=== PATIENT | female | born 1975 | race Caucasian/White ===

== ENCOUNTER 2016-08-15 09:02 | Emergency (ER) | payer MEDICARE | END 2016-08-15 09:26 | disposition home or self-care (01) | LOC: ER 09:02 | DX: H66.91 Otitis media, unspecified, right ear (principal); F17.210 Nicotine dependence, cigarettes, uncomplicated; Z90.49 Acquired absence of other specified parts of digestive tract; Z88.5 Allergy status to narcotic agent ==

== ENCOUNTER 2016-10-18 20:00 | Emergency (ER) | payer MEDICARE | END 2016-10-18 21:15 | disposition home or self-care (01) | LOC: ER 20:00 | DX: M19.031 Primary osteoarthritis, right wrist (principal); M25.511 Pain in right shoulder; E28.2 Polycystic ovarian syndrome; F17.210 Nicotine dependence, cigarettes, uncomplicated; Z88.5 Allergy status to narcotic agent ==